=== PATIENT | female | born 1985 | race Caucasian/White ===

== ENCOUNTER 2019-03-30 00:46 | Inpatient (IN) | payer OTHER ==
[2019-03-30 01:19] VITALS: BMI 36.0
--- NOTE | 2019-03-30 03:48 | PDOC.FPROB ---
FMR OB H&P: HPI - History of Present Illness Chief Complaint: contractions History of Present Illness: 33 yo G1 @39.6wks presents with contractions since 0500 yesterday am. Endorses good movement. States she lost her mucous plug earlier this event. Denies LOF, VB, dysuria, discharge. Denies complications this . FMR OB H&P: Current - Care : 1 Para: 0 Gestational age: 39.6 FMR OB H&P: History - Past Medical History PMH: none - OB History OB History: no complications - Surgical History Sx History: none - Social History Social History: denies smoking, alcohol, drug use - Family History Family History: father-htn FMR OB H&P: Medications - Current Home Medications: Medication Instructions Recorded Confirmed Type Pnv No.95/Ferrous Fum/Folic AC 1 each PO 03/30/19 History [ [place]] Allergies/Adverse Reactions: Allergies Allergy/AdvReac Type Severity Reaction Status Date / Time No Known Allergies Allergy Verified 03/30/19 01:16 FMR OB H&P: ROS - Review of Systems General: denies: fever/chills, weight/appetite/sleep changes ENT: denies: nasal congestion, rhinorrhea Cardiovascular: denies: chest pain, palpitation Respiratory: denies: cough, congestion, shortness of breath Gastrointestinal: reports: abdominal pain, cramping Genitourinary (Female): reports: contractions, other (mucous). denies: dysuria , vaginal discharge, vaginal bleeding Musculoskeletal: denies: pain, stiffness Neurologic: denies: numbness, syncope Integumentary: denies: itching, rash Hematologic/Lymphatic: denies: prolonged or excessive bleeding Psychological: denies: depression, anxiety FMR OB H&P: Physical Exam - Physical Exam General: NAD, awake, alert and oriented HEENT: normocephalic and atraumatic, PERRLA Heart: RRR General: no respiratory distress Abdomen: soft, gravid Skin: no rash, good tugor, capillary refill <2 seconds Lymphatic: no unusual bruising or bleeding, no purpura Psychiatric: intact recent and remote memory, good judgement and insight - Pelvic Exam SVE: /-2 FMR OB H&P: A/P - Problem List (1) Third trimester Current Visit: No Status: Acute Code(s): Z34.93 - ENCNTR FOR SUPRVSN OF NORMAL PREG, UNSP, THIRD TRIMESTER Discussion: Date/Time: 03/30/19 0346 33 yo G1@39.6wks here with contractions admitted in labor. sIUP -latent labor, but with cervical change after a two hour period of observation and walking -will admit, start GBS prophylaxis, and continue to monitor via NST -will recheck cervix in 2-4 hours for continued cervical change -will augment if indicated GBS positive -PCN started Krzysztof Winn MD, PGY-3 Addendum - Attending - Attending Attestation Date/Time: 03/30/19 0555 I personally evaluated the patient and discussed the management with Dr. Liang. 33 yo WF G1 in early labor. GBS positive. Will admit and start GBS ppx. I agree with the History, Examination, Assessment and Plan documented above.
[2019-03-30] MEDS ORDERED: Ondansetron PF 4 MG/2 ML Vial IVP PRN ×2 (03:49→18:26)
[2019-03-30] MEDS ORDERED: Butorphanol Tartrate 1 MG/ML VIAL SLOW IVP PRN (03:49)
[2019-03-30] MEDS ORDERED: Ibuprofen 800 MG TAB PO PRN (03:49)
[2019-03-30] MEDS ORDERED: HYDROcodone/Acetaminophen 5/325 mg Tablet PO PRN ×2 (03:49)
[2019-03-30] MEDS ORDERED: Acetaminophen 500 MG TAB PO PRN (03:49)
[2019-03-30] MEDS ORDERED: hydrALAZINE 20 MG/ML VIAL SLOW IVP PRN ×2 (03:49→17:10)
[2019-03-30] MEDS ORDERED: Lidocaine 1% (PF) 30 ML VIAL SC PRN (03:49)
[2019-03-30] MEDS ORDERED: Promethazine HCl 25 MG/ML VIAL IM PRN ×2 (03:49→18:26)
[2019-03-30] MEDS ORDERED: NS / Oxytocin 40 units/1000ml 1,000 ML IV PRN (03:49)
[2019-03-30] MEDS ORDERED: Penicillin G Potassium 5 MILL.UNITS in Sodium Chloride 0.9% 100 ML IVPB SCH (04:00)
[2019-03-30 04:10] LABS: Hemoglobin 12.9 g/dL (12.0-16.0); Mean Corpuscular HGB CONC 34.2 g/dL (32.0-36.0); Mean Corpuscular Volume 90.7 fL (78.0-98.0); Mean Platelet Volume 11.3 fL (7.4-10.4); Platelet Count 153 thou/uL (130-400); RBC Distribution Width 12.4 % (11.5-14.5); Red Blood Cell (RBC) Count 4.16 mill/uL (4.20-5.40); White Blood Cell (WBC) Count 13.7 thou/uL (4.8-10.8)
[2019-03-30] MEDS: Lactated Ringer's 1,000 ML IV SCH ×3 (04:18→20:35)
[2019-03-30 04:46] LABS: HBSAg Index 0.15 S/CO (0-0.99); Hep B Surf Ag Non-Reactive S/CO (NonReactive)
[2019-03-30 05:39] LABS: Syphilis Antibody Nonreactive (Nonreactive); Syphilis Antibody Index 0.04 S/CO (<1.00 Non-Reactive)
[2019-03-30] MEDS: Fentanyl 4 mcg/Bup 0.1% Cadd 100 ML ONE ×2 (06:46→14:43)
[2019-03-30] MEDS: Penicillin G 2.5 MILL.units 2.5 MILL.UNITS in Premix Bag 1 BAG IVPB SCH ×5 (08:12→20:35)
[2019-03-30] MEDS ORDERED: NS w/ Oxytocin 10 units 500 ML IV SCH (10:45)
[2019-03-30] MEDS ORDERED: Bupivacaine 0.25% HCL 30 ML VIAL ONE (11:11)
[2019-03-30] MEDS ORDERED: Fentanyl 4 mcg/Bup 0.1% Cadd 100 ML ONE (14:38)
[2019-03-30] MEDS ORDERED: Benzocaine-Menthol 82.5 ML CAN TOP PRN (17:10)
[2019-03-30] MEDS ORDERED: Lanolin Ointment 7 GM TUBE TOP PRN (17:10)
[2019-03-30] MEDS ORDERED: Milk Of Magnesia 30 ML UDCUP PO PRN (17:10)
[2019-03-30] MEDS ORDERED: diphenhydrAMINE 25 MG CAP PO PRN (17:10)
[2019-03-30] MEDS ORDERED: traMADol HCl 50 MG TAB PO PRN (17:10)
[2019-03-30] MEDS ORDERED: Bisacodyl 10 MG SUPP PR PRN (17:10)
[2019-03-30] MEDS ORDERED: NS / Oxytocin 40 units/1000ml 1,000 ML IV SCH (17:15)
[2019-03-30] MEDS: Ibuprofen 800 MG TAB PO SCH (18:13)
[2019-03-30] MEDS ORDERED: diphenhydrAMINE 50 MG/ML VIAL IVP PRN (18:26)
[2019-03-30] MEDS ORDERED: Naloxone HCl 0.4 mg/ml Vial IVP PRN ×2 (18:26)
[2019-03-30] MEDS ORDERED: ePHEDrine/0.9% NaCl/PF SYRINGE 50 mg/10 ml SLOW IVP PRN (18:26)
[2019-03-30] MEDS ORDERED: Acetaminophen 325 MG TAB PO PRN (18:26)
[2019-03-30] MEDS ORDERED: Lactated Ringer's 500 ML IV PRN (18:26)
[2019-03-30] MEDS ORDERED: Communication Order-Pharmacy FS SCH (18:30)
[2019-03-30] MEDS ORDERED: Fentanyl 4 mcg/Bupivacaine 0.1% Cassette 100 ML EPIDURAL SCH (18:30)
[2019-03-30] MEDS: Docusate Calcium (SURFAK) 240 MG CAP PO SCH (21:12)
[2019-03-31] MEDS: Ibuprofen 800 MG TAB PO SCH ×3 (05:20→21:04)
--- NOTE | 2019-03-31 07:59 | PDOC.PP ---
Post Progress Note Post Day #: 1 PO intake tolerated: yes Flatus: yes Ambulation: yes Vital Signs (12 hours) Temp Pulse Resp BP Pulse Ox 03/31/19 05:10 97.9 F 67 16 106/68 03/30/19 23:33 97.8 F 66 16 118/71 03/30/19 21:00 97.5 F L 71 16 113/60 03/30/19 20:00 97.5 F L 74 16 119/61 98 Weight Weight 197 lb Result Diagrams: 03/30/19 03:58 Additional Labs: Post Labs Blood Type A POSITIVE 03/30/19 06:28 Hep Bs Antigen Non-Reactive S/CO (NonReactive) 03/30/19 03:58 - Assessment/Plan Post day 1-. Doing well. Working on breast feeding. Routine care . Anticipate discharge in AM.
--- NOTE | 2019-03-31 08:04 | PDOC.OPDEL ---
OB Operative/Delivery Note Delivery Dr/Surgeon: Roro Pre-Delivery Diagnosis: active labor Procedure/Post Delivery Dx: spontaneous vaginal delivery Weeks gestation: 39 Anesthesia: epidural - Findings A Sex: female Weight: 7 lb 12 oz - 1 min: 8 - 5 min: 9 - Additional Findings/Plan Placenta delivered: spontaneous Repaired Obstetrical Laceration: 2nd degree Estimated blood loss: 225 ml qbl. Post delivery plan: routine recovery
[2019-03-31] MEDS ORDERED: Adacel (T-DAP) 0.5 ML SYRINGE IM ONE (09:00)
[2019-03-31] MEDS: Ferrous Sulfate 325 MG TAB PO SCH ×2 (09:22→18:04)
[2019-03-31] MEDS: Docusate Calcium (SURFAK) 240 MG CAP PO SCH ×2 (09:22→21:04)
[2019-03-31] MEDS: Prenatal Vitamin 1 TAB PO SCH (09:22)
--- NOTE | 2019-04-01 07:29 | PDOC.PP ---
Post Progress Note Post Day #: 2 PO intake tolerated: yes Flatus: yes Ambulation: yes Vital Signs (12 hours) Temp Pulse Resp BP Pulse Ox 04/01/19 01:50 97.5 F L 62 16 117/70 03/31/19 19:46 98.1 F 84 20 123/78 98 Weight Weight 197 lb Result Diagrams: 03/30/19 03:58 Additional Labs: Post Labs Blood Type A POSITIVE 03/30/19 06:28 Hep Bs Antigen Non-Reactive S/CO (NonReactive) 03/30/19 03:58 - Assessment/Plan Doing well post day 2. D/c home and follow up 6 weeks.
[2019-04-01 08:14] VITALS: BP 116/64; TEMP 97.8
[2019-04-01] MEDS: Ferrous Sulfate 325 MG TAB PO SCH (08:16)
[2019-04-01] MEDS: Prenatal Vitamin 1 TAB PO SCH (09:25)
[2019-04-01] MEDS: Docusate Calcium (SURFAK) 240 MG CAP PO SCH (09:25)
== END 2019-04-01 13:40 | disposition home or self-care (01) | DRG 807 ==
LOC: L&D/OP 00:46 → L&D 10:44 → 3SW 20:13
PROVIDERS: ADMIT Obstetrics & Gynecology; ATTEND Obstetrics & Gynecology
PROC: 10E0XZZ Delivery of Products of Conception, External Approach (ICD-10-PCS; principal; 2019-03-31)
PROC: 0KQM0ZZ Repair Perineum Muscle, Open Approach (ICD-10-PCS; 2019-03-31)
DX: O99.824 Streptococcus B carrier state complicating childbirth (principal); Z37.0 Single live birth; O70.1 Second degree perineal laceration during delivery; Z3A.39 39 weeks gestation of pregnancy
CPT/HCPCS: 36415; 51702; 86780; 86850; 86900; 86901; 87340; 99285; J2001; J2540; J2590; J3490; S0020